=== PATIENT | female | born 1990 | race Two or more races ===

== ENCOUNTER 2017-01-25 15:35 | Emergency (ER) | payer OTHER ==
[~2017-01-25] VITALS: Ht 180.3 cm; Wt 85.7 kg
[2017-01-25] MEDS ORDERED: CIPRODEX OTIC7.5 ML RIGHT EAR (16:54)
[2017-01-25 17:25] VITALS: BP 149/116
== END 2017-01-25 17:25 | disposition home or self-care (01) ==
LOC: EME 15:35
PROC: 09C0XZZ Extirpation of Matter from Right External Ear, External Approach (ICD-10-PCS; principal; 2017-01-25)
DX: H66.91 Otitis media, unspecified, right ear (principal); H61.21 Impacted cerumen, right ear
CPT/HCPCS: 99281; 99284